=== PATIENT | female | born 1975 | race Hispanic/Latino ===

== ENCOUNTER 2023-04-21 18:06 | Emergency (ER) | payer OTHER ==
[2023-04-21 19:20] LABS: Absolute Lymphocytes (CBC) 0.8 K/uL (0.7-4.9); Hematocrit 42.9 % (36.0-45.0); MCV 85.9 fL (80-100); MPV 6.6 fL (7.6-11.3); RBC Red Blood Cell Count 4.99 M/uL (3.86-4.86)
[2023-04-21 19:27] LABS: Protime INR 1.05
--- NOTE | 2023-04-21 19:31 | RAD REPORT ---
EXAM DESCRIPTION: RAD - Chest Single View - 04/21/2023 7:25 pm CLINICAL HISTORY: right leg swelling Chest pain. COMPARISON: No comparisons FINDINGS: Portable technique limits examination quality. The lungs are grossly clear. The heart is normal in size. No displaced fractures. IMPRESSION: No acute intrathoracic process suspected.
--- NOTE | 2023-04-21 19:59 | RAD REPORT ---
EXAM DESCRIPTION: US - Extremity Venous Uni Ltd - 04/21/2023 7:46 pm CLINICAL HISTORY: SWELLING Leg swelling and edema. COMPARISON: No comparisons FINDINGS: Right lower extremity venous system was interrogated with Doppler technique. Normal flow, compressibility and augmentation was noted. There is no DVT present. IMPRESSION: No evidence of right lower extremity deep venous thrombosis.
[2023-04-21 20:18] LABS: Magnesium 2.4 mg/dL (1.6-2.4); Potassium 3.6 mEq/L (3.5-5.1)
[2023-04-21] MEDS ORDERED: LABETALOL 20 MG/4ML SYRINGE IV ONE (20:22)
[2023-04-21] MEDS ORDERED: NA CHLORIDE 0.9% 1,000 ML ONE (21:32)
--- NOTE | 2023-04-21 22:07 | RAD REPORT ---
EXAM DESCRIPTION: CT - Chest For Pe Angio - 04/21/2023 9:58 pm CLINICAL HISTORY: Chest pain. SWELLING COMPARISON: No comparisons TECHNIQUE: CT angiogram of the pulmonary arteries was performed with MIP. All CT scans are performed using dose optimization technique as appropriate and may include automated exposure control or mA/KV adjustment according to patient size. FINDINGS: No evidence of pulmonary thromboembolism. No acute aortic finding demonstrated. The lungs are clear. No significant pericardial or pleural fluid. No concerning bony finding. IMPRESSION: No evidence of pulmonary thromboembolism. No acute lung findings.
--- NOTE | 2023-04-21 22:49 | ER ---
Nurse's Notes [facility] Name: Prakash Robert Age: 48 yrs Sex: Female : 1975 Arrival Date: 04/21/2023 Time: 18:06 Bed 12 Private MD: Jewel Islas Diagnosis: Edema, unspecified;Elevated blood-pressure reading, without diagnosis of hypertension Presentation: 04/21 18:30 Chief complaint: Patient states: had right ankle fracture with cast removed on March 19, aa5 2022. Pt states "the swelling is not getting any better and I want to make sure I don't have a blood clot". Onset of symptoms was February 2023. 18:30 Acuity: EDWARD 3 aa5 18:30 Method Of Arrival: Wheelchair aa5 18:30 Coronavirus screen: At this time, the client does not indicate any symptoms associated aa5 with coronavirus-19. Ebola Screen: Patient denies travel to an Ebola-affected area in the 21 days before illness onset. Initial Sepsis Screen: Does the patient meet any 2 criteria? HR > 90 bpm. Does the patient have a suspected source of infection? No. Patient's initial sepsis screen is negative. Risk Assessment: Do you want to hurt yourself or someone else? Patient reports no desire to harm self or others. 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 - Social history:: Smoking status: Patient denies any tobacco usage or history of. Screenin:53 [facility] ED Fall Risk Assessment (Adult) History of falling in the last 3 months, cm10 including since admission No falls in past 3 months (0 pts) Confusion or Disorientation No (0 pts) Intoxicated or Sedated No (0 pts) Impaired Gait No (0 pts) Mobility Assist Device Used No (0 pt) Altered Elimination No (0 pt) Score/Fall Risk Level 0 - 2 = Low Risk Oriented to surroundings, Maintained a safe environment, Hourly rounding (assess needs \\T\\ fall precautionary measures) done. Abuse screen: Denies threats or abuse. Denies injuries from another. Nutritional screening: No deficits noted. Tuberculosis screening: No symptoms or risk factors identified. Assessment: 18:51 General: Appears in no apparent distress. comfortable, Behavior is calm, cooperative. cm10 Pain: Complains of pain in right calf, right ankle, medial aspect of right foot, anterior aspect of right ankle and dorsum of right foot. Neuro: No deficits noted. Level of Consciousness is awake, alert, Oriented to person, place, time, situation. Respiratory: No deficits noted. Airway is patent Respiratory effort is even, unlabored, Respiratory pattern is regular, symmetrical. Musculoskeletal: Swelling present in Right foot and ankle. 19:30 Reassessment: No changes from previously documented assessment. Patient and/or family vc1 updated on plan of care and expected duration. Pain level reassessed. Patient is alert, oriented x 3, equal unlabored respirations, skin warm/dry/pink. 20:24 Reassessment: No changes from previously documented assessment. Patient and/or family vc1 updated on plan of care and expected duration. Pain level reassessed. Patient is alert, oriented x 3, equal unlabored respirations, skin warm/dry/pink. 22:59 Reassessment: Patient appears in no apparent distress at this time. Patient states kl feeling better. Patient states symptoms have improved. Vital Signs: 18:30 BP 143 / 82; Pulse 120; Resp 18 S; Temp 97.7(TE); Pulse Ox 99% on R/A; aa5 19:30 BP 147 / 78; Pulse 131; Resp 21; Pulse Ox 98% ; vc1 20:24 BP 145 / 88; Pulse 117; Resp 18; Pulse Ox 97% ; vc1 21:32 BP 152 / 90; Pulse 106; Resp 15; Pulse Ox 96% ; ll3 21:59 Pulse 106; vc1 22:00 BP 143 / 83; Pulse 92; Resp 18; Pulse Ox 98% ; kl 22:00 BP 126 / 71; Pulse 98; Resp 16; Pulse Ox 99% on R/A; kl ED Course: 18:12 Patient arrived in ED. am2 18:12 Jewel Islas MD is Private Physician. am2 18:30 Arm band placed on. aa5 18:31 Triage completed. aa5 18:36 Page, Antonio, PA is PHCP. cp 18:36 Antonio Graham MD is Attending Physician. cp 18:53 Patient has correct armband on for positive identification. Bed in low position. Call cm10 light in reach. Provided Education on: N/A. 18:53 No provider procedures requiring assistance completed. cm10 18:59 Nasreen Guadalupe, RN is Primary Nurse. cm10 19:13 Elissa Goode, RN is Primary Nurse. vc1 19:14 Inserted saline lock: 20 gauge in right antecubital area, using aseptic technique. vc1 Blood collected. 19:14 Basic Metabolic Panel Sent. vc1 19:14 CBC with Diff Sent. vc1 19:14 Magnesium Sent. vc1 19:14 NT PRO-BNP Sent. vc1 19:14 PT-INR Sent. vc1 19:27 XRAY Chest (1 view) In Process Unspecified. EDMS 19:47 US Extremity Venous Unilateral Ltd In Process Unspecified. EDMS 22:00 CT Chest For PE Angio In Process Unspecified. EDMS 22:59 IV discontinued, intact, bleeding controlled, No redness/swelling at site. Pressure kl dressing applied. Administered Medications: 20:17 Drug: Labetalol IV 10 mg Route: IV; Rate: calculated rate; Infused Over: 2 mins; Site: vc1 right antecubital; 21:59 Follow up: Pulse 106 bpm; Response: No adverse reaction; IV Status: IV push vc1 21:25 Drug: NS 0.9% IV 1000 ml Route: IV; Rate: 1 bolus; Site: right antecubital; Medication: 18:53 VIS not applicable for this client. cm10 Outcome: 20:24 Condition: good vc1 22:48 Discharge ordered by . cp 22:59 Discharged to home ambulatory, with family. 22:59 Discharge instructions given to patient, Instructed on discharge instructions, follow up and referral plans. Demonstrated understanding of instructions, follow-up care. 22:59 Patient left the ED. Signatures: Dispatcher [employer] EDMS Susannah Denny RN RN kl Calderon, Audri RN RN aa5 Antonio Brennan, Milla Brandt cp am2 Afshan Schneider RN RN ll3 Elissa Goode RN RN vc1 Nasreen Guadalupe RN RN cm10 Corrections: (The following items were deleted from the chart) 21:35 21:32 BP 152 / 90; Pulse 113bpm; Resp 15bpm; Pulse Ox 96%; ll3 ll3
--- NOTE | 2023-04-21 22:49 | EDPHYS ---
Physician Documentation [facility] Name: Prakash Robert Age: 48 yrs Sex: Female : 1975 Arrival Date: 04/21/2023 Time: 18:06 Bed 12 Private MD: Jewel Islas ED Physician Antonio Graham HPI: 04/21 19:00 This 48 yrs old Female presents to ER via Wheelchair with complaints of Ankle cp Swelling. 19:00 The patient presents with swelling, tenderness. The complaints affect the right ankle, cp right lower leg. Onset: The symptoms/episode began/occurred gradually, noticed after removal of right ankle cast on March 18, 2023. Associated signs and symptoms: Pertinent negatives: fever, warmth, shortness of breath, chest pain. Severity of symptoms: in the emergency department the symptoms are unchanged, despite home interventions. 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 - Social history:: Smoking status: Patient denies any tobacco usage or history of. ROS: 19:05 Eyes: Negative for injury, pain, redness, and discharge. cp 19:05 Constitutional: Negative for body aches, chills, fever. 19:05 ENT: Negative for drainage from ear(s), ear pain, sore throat, difficulty swallowing, difficulty handling secretions. 19:05 Cardiovascular: Negative for chest pain, palpitations. 19:05 Respiratory: Negative for cough, shortness of breath, wheezing. 19:05 Abdomen/GI: Negative for abdominal pain, nausea, vomiting, and diarrhea. 19:05 MS/extremity: Positive for swelling, tenderness, of the right lower leg and right ankle, Negative for warmth. 19:05 All other systems are negative. Exam: 19:10 Constitutional: The patient appears in no acute distress, alert, awake, cp non-diaphoretic, non-toxic, well developed, well nourished, overweight 19:10 Head/Face: Normocephalic, atraumatic. cp 19:10 Eyes: Periorbital structures: appear normal, Conjunctiva: normal, no exudate, no injection, Sclera: no appreciated abnormality, Lids and lashes: appear normal, bilaterally. 19:10 ENT: External ear(s): are unremarkable, Nose: is normal, Mouth: Lips: moist, Oral mucosa: pink and intact, moist, Posterior pharynx: is normal, airway is patent, no erythema, no exudate. 19:10 Neck: ROM/movement: is normal, is supple, without pain, no range of motions limitations. 19:10 Chest/axilla: Inspection: normal. 19:10 Cardiovascular: Rate: tachycardic, Rhythm: regular, Edema: ankle edema, moderate right ankle, JVD: is not appreciated. 19:10 Respiratory: the patient does not display signs of respiratory distress, Respirations: normal, no use of accessory muscles, no retractions, labored breathing, is not present, Breath sounds: are clear throughout, no decreased breath sounds, no stridor. 19:10 Abdomen/GI: Inspection: abdomen appears normal, Palpation: abdomen is soft and non-tender, in all quadrants. 19:10 Back: pain, is absent, ROM is normal. 19:10 Skin: cellulitis, is not appreciated, no rash present. 19:10 Neuro: Orientation: to person, place \T\ time. Mentation: is normal, Motor: moves all fours, Sensation: is normal. 19:27 ECG was reviewed by the Attending Physician. cp Vital Signs: 18:30 BP 143 / 82; Pulse 120; Resp 18 S; Temp 97.7(TE); Pulse Ox 99% on R/A; aa5 19:30 BP 147 / 78; Pulse 131; Resp 21; Pulse Ox 98% ; vc1 20:24 BP 145 / 88; Pulse 117; Resp 18; Pulse Ox 97% ; vc1 21:32 BP 152 / 90; Pulse 106; Resp 15; Pulse Ox 96% ; ll3 21:59 Pulse 106; vc1 22:00 BP 143 / 83; Pulse 92; Resp 18; Pulse Ox 98% ; kl 22:00 BP 126 / 71; Pulse 98; Resp 16; Pulse Ox 99% on R/A; kl MDM: 18:36 Patient medically screened. cp 22:47 Data reviewed: vital signs, nurses notes, lab test result(s), EKG, radiologic studies, cp CT scan, plain films, ultrasound. 22:47 Differential diagnosis: cellulitis, DVT, dependent edema. Counseling: I had a detailed cp discussion with the patient and/or guardian regarding: the historical points, exam findings, and any diagnostic results supporting the discharge/admit diagnosis, lab results, radiology results, the need for outpatient follow up, a family practitioner. 04/21 18:52 Order name: Basic Metabolic Panel; Complete Time: 21:16 04/21 22:10 Interpretation: Normal except: CL 110; GLUC 137. 04/21 18:52 Order name: CBC with Diff; Complete Time: 20:02 04/21 20:02 Interpretation: Normal except: RBC 4.99; MPV 6.6; KAMLA% 84.5; LYM% 14.0; MN% 1.0. 04/21 18:52 Order name: Magnesium; Complete Time: 21:16 04/21 18:52 Order name: NT PRO-BNP; Complete Time: 21:16 04/21 18:52 Order name: PT-INR; Complete Time: 20:02 04/21 20:05 Order name: LAB Add On 04/21 20:05 Order name: D-Dimer; Complete Time: 21:16 04/21 22:14 Interpretation: Reviewed. 04/21 18:52 Order name: US Extremity Venous Unilateral Ltd; Complete Time: 20:02 04/21 18:52 Order name: XRAY Chest (1 view); Complete Time: 20:02 04/21 21:16 Order name: CT Chest For PE Angio; Complete Time: 22:09 04/21 18:52 Order name: EKG; Complete Time: 18:54 04/21 18:52 Order name: Cardiac monitoring; Complete Time: 19:25 04/21 18:52 Order name: EKG - Nurse/Tech; Complete Time: 19:25 04/21 18:52 Order name: IV Saline Lock; Complete Time: 19:14 04/21 18:52 Order name: Labs collected and sent; Complete Time: 19:14 04/21 18:52 Order name: O2 Per Protocol; Complete Time: 19:14 04/21 18:52 Order name: O2 Sat Monitoring; Complete Time: 19:14 EC:27 Rate is 127 beats/min. Rhythm is regular. MA interval is normal. QRS interval is cp normal. QT interval is normal. Interpreted by me. Reviewed by me. Administered Medications: 20:17 Drug: Labetalol IV 10 mg Route: IV; Rate: calculated rate; Infused Over: 2 mins; Site: vc1 right antecubital; 21:59 Follow up: Pulse 106 bpm; Response: No adverse reaction; IV Status: IV push vc1 21:25 Drug: NS 0.9% IV 1000 ml Route: IV; Rate: 1 bolus; Site: right antecubital; Disposition Summary: 04/21/23 22:48 Discharge Ordered Location: Home cp Problem: new cp Symptoms: have improved cp Condition: Stable cp Diagnosis - Edema, unspecified cp - Elevated blood-pressure reading, without diagnosis of hypertension cp Followup: cp - With: Private Physician - When: 1 - 2 days - Reason: Recheck today's complaints Discharge Instructions: - Discharge Summary Sheet cp - Edema cp - How to Take Your Blood Pressure, Kijl-[id number] cp - Aspirin and Your Heart cp - Form - Blood Pressure Record Sheet cp - How to Use Compression Stockings cp Forms: - Medication Reconciliation Form cp - Thank You Letter cp - Antibiotic Education cp - Prescription Opioid Use cp - Patient Portal Instructions cp Signatures: Dispatcher [employer] EDSusannah Navarro RN RN kl Calderon, Audri RN RN aa5 Antonio Brennan PA PA cp Calcote, Vanessa, RN RN vc1 Corrections: (The following items were deleted from the chart) 04/22 22:49 22:46 MS/extremity: Positive for swelling, tenderness, of the right lower leg and right cp ankle, Negative for warmth, cp 22:49 22:46 Cardiovascular: Negative for chest pain, palpitations, cp cp 22:49 22:46 Respiratory: Negative for cough, shortness of breath, wheezing, cp cp 22:49 22:46 Abdomen/GI: Negative for abdominal pain, nausea, vomiting, and diarrhea, cp cp 22:49 22:46 Constitutional: Negative for body aches, chills, fever, cp cp 22:49 22:46 Eyes: Negative for injury, pain, redness, and discharge, cp cp 22:49 22:46 ENT: Negative for drainage from ear(s), ear pain, sore throat, difficulty cp swallowing, difficulty handling secretions, cp 22:49 22:46 All other systems are negative, cp cp
[2023-04-21 23:32] VITALS: TEMP 97.7
[2023-04-21 23:38] VITALS: BP 126/71; O2SAT 99
--- NOTE | 2023-04-22 13:19 | EKG ---
Test Date: 2023-04-21 Test Time: 19:20:04 Fish Dressing Machine Feeder: ITA MEASUREMENT RESULTS: Intervals: Rate: 127 [place]: 142 QRSD: 88 QT: 296 QTc: 430 [place]: P: 48 [place]: 142 QRS: -3 T: -39 INTERPRETIVE STATEMENTS: Sinus tachycardia Cannot rule out Inferior infarct, age undetermined Anterior infarct, age undetermined Abnormal ECG Compared to ECG 09/20/2010 12:01:11 Myocardial infarct finding now present Sinus rhythm no longer present Electronically Signed On 04-22-23 13:18:59 CDT by Manpreet Garcia
== END 2023-04-21 22:59 | disposition home or self-care (01) ==
LOC: ER 18:06
DX: R60.0 Localized edema (principal); R03.0 Elevated blood-pressure reading, without diagnosis of hypertension; Z88.1 Allergy status to other antibiotic agents
CPT/HCPCS: 85025; 80048; 36415; 83735; 85610; 85379; 83880; 71275; 71045; 93971; Q9967; J7030; 93005; 96365; 96366; 99284